=== PATIENT | female | born 1990 | race Native Hawaiian/Other Pacific Islander ===

== ENCOUNTER 2017-01-15 16:35 | Emergency (ER) | payer OTHER ==
--- NOTE | 2017-01-15 18:35 | PROVIDER DOCUMENTATION ---
HPI-Female /OB/Breast - General Source: reports: patient, other (FAMILY FRIEND) - History of Present Illness-Female /OB Does patient report she is ?: Yes Location of complaint: reports: suprapubic Radiation: reports: none Quality of Pain: reports: aching Severity in ED: reports: moderate Onset/Duration: reports: last week Timing: reports: still present Context/Activities at Onset: reports: none Vaginal Symptoms: reports: no symptoms Vaginal Bleeding Amount: None Urinary Symptoms: reports: no symptoms Related Symptoms: reports: pelvic pain, abdominal pain Leakage of Fluid: none Modifying Factors: improves with: nothing Associated Symptoms: reports: vomiting - LMP/ History Menstrual Status: currently LMP: 10/21/16 : 2 Para: 1 : 0 HCG confirmation: home preg test Care: clinic Age estimated by:: by dates CURRENT Problems: other (EXCESSIVE VOMITING) PREVIOUS Problems: reports: none <Dennys Meyer - Last Filed: 01/15/17 19:58> <Miquel Nava - Last Filed: 01/15/17 21:04> - General Chief Complaint: Female Stated Complaint: PREG/N/V Time Seen by Provider: 01/15/17 18:35 Allergies/Adverse Reactions: Patient Allergies Allergy/AdvReac Type Severity Reaction Status Date / Time No Known Allergies Allergy Verified 01/15/17 16:59 Home Medications: Home Medication List Medication Instructions Recorded Confirmed Last Taken Type Pnv with Ca,No.72/Iron/FA [Pnv 1 each PO DAILY #30 tablet 01/15/17 Unknown Rx Plus Multivit Tab] Promethazine [Phenergan] 25 mg PO Q6H PRN PRN #20 tablet 01/15/17 Unknown Rx - History of Present Illness-Female /OB Nature of Presenting Problem: PATIENT REPORTS WENT TO PCP TODAY FOR VOMTING OF . STATES DR. FOX WAS CONCERENED FOR DEHYDRATION SO RECOMMENDED PATIENT TO COME TO ER FOR IV FLUIDS. PATIENT HAS FIRST OB APPOINTMENT WITH DR. RODAS ON FRIDAY. LMP 10-25. CURRENTLY G2, P1, A0. PATIENT ALSO REPORTS LOWER ABD PAIN, BUT DENIES ANY VAGINAL BLEEDING. (Dennys Meyer) Review of Systems - Adult - REVIEW OF SYSTEMS - ADULT Constitutional: reports: no symptoms reported Eyes: reports: no symptoms reported Ears, Nose, Mouth & Throat: reports: no symptoms reported Cardiovascular: reports: no symptoms reported Respiratory: reports: no symptoms reported Gastrointestinal: reports: see HPI Genitourinary: reports: see HPI Musculoskeletal: reports: no symptoms reported Integumentary: reports: no symptoms reported Neurological: reports: headache/migraines Psychiatric: reports: no symptoms reported Endocrine: reports: no symptoms reported Hematologic/Lymphatic: reports: no symptoms reported Allergic/Immunologic: reports: no symptoms reported <Dennys Meyer - Last Filed: 01/15/17 19:58> Past History - Adult - PAST MEDICAL HISTORY-ADULT Review of Records: reports: Nursing Assessment Review, Medications Reviewed, Social history reviewed & non-contributory. <Dennys Meyer - Last Filed: 01/15/17 19:58> Physical Exam-General - PHYSICAL EXAM-ADULT Initial Vital Signs Reviewed: Yes - CONSTITUTIONAL General Appearance: appears well, alert, no apparent distress - EYES Eyes: PERRL/EOMI - HEAD, EARS, NOSE, MOUTH & THROAT HENMT: normocephalic/atraumatic - NECK Neck: full range of motion - RESPIRATORY Respiratory: lungs clear - CARDIOVASCULAR Cardiovascular: regular rate, rhythm - GASTROINTESTINAL (ABDOMEN) Abdominal Exam: normal bowel sounds, soft, tenderness (SUPRAPUBIC) - MUSCULOSKELETAL Extremity: normal range of motion, normal gait - SKIN Integumentary: normal color, normal turgor, warm/dry - NEUROLOGIC Neurologic: grossly normal - PSYCHIATRIC Psych/Mental Status: normal mood/affect, normal thought content, normal thought process, oriented x 3 <Dennys Meyer - Last Filed: 01/15/17 19:58> Progress - CHANGE OF SHIFT REPORT (ED Provider) Report Given and Care Transferred to:: J[facility] Time of Transfer: 19:58 Items Pending: Labs, Ultrasound Results <Dennys Meyer - Last Filed: 01/15/17 19:58> - ULTRASOUND (By Radiology) 1 US Study: Pelvic US Results: 10w5d IUP; FHR 163; L ovarian cyst 2cm <Miquel Nava - Last Filed: 01/15/17 21:04> - PLAN OF CARE/RESULTS Progress/Plan/Lab Results: Laboratory Tests 01/15/17 01/15/17 01/15/17 18:15 19:15 19:15 WBC RBC Hgb Hct MCV MCH MCHC RDW Std Deviation Plt Count MPV Immature Gran % (Auto) Neut % (Auto) Lymph % (Auto) [place] % (Auto) Eos % (Auto) Baso % (Auto) Immature Gran # (Auto) Neut # (Auto) Lymph # (Auto) Griggs # (Auto) Eos # (Auto) Baso # (Auto) Sodium 134 L Potassium 3.7 Chloride 98 Carbon Dioxide 21 L Anion Gap 15 BUN 5 L Creatinine 0.4 L Estimated GFR/1.73 m2 > 60 BUN/Creatinine Ratio 13 Glucose 82 Calculated Osmolality 265 Calcium 9.9 Total Bilirubin 0.20 AST 23 ALT 11 Alkaline Phosphatase 43 Total Protein 8.2 Albumin 4.6 Globulin 4.0 Albumin/Globulin Ratio 1.0 Ser , Semi-Qnt 425360.0 Urine Source CLEAN CATCH Urine Color YELLOW Urine Clarity CLEAR Urine pH 7.0 Ur Specific [place] 1.005 Urine Protein NEGATIVE Urine Ketones NEGATIVE Urine Blood TRACE Urine Nitrite NEGATIVE Urine Bilirubin NEGATIVE Urine Urobilinogen NORMAL Urine Microscopic RBC <10 Urine WBC NEGATIVE Ur Epithelial Cells <10 Urine Glucose NEGATIVE ABO/Rh Screen RhIG Candidate? 01/15/17 01/15/17 19:15 19:45 WBC 5.22 RBC 4.38 Hgb 11.9 L Hct 34.9 L MCV 79.7 L MCH 27.2 MCHC 34.1 RDW Std Deviation 12.4 Plt Count 319 MPV 9.9 Immature Gran % (Auto) 0.2 Neut % (Auto) 49.8 Lymph % (Auto) 38.5 Gr[place]gs % (Auto) 8.6 Eos % (Auto) 2.7 Baso % (Auto) 0.2 Immature Gran # (Auto) 0.01 Neut # (Auto) 2.60 Lymph # (Auto) 2.01 Griggs # (Auto) 0.45 Eos # (Auto) 0.14 Baso # (Auto) 0.01 Sodium Potassium Chloride Carbon Dioxide Anion Gap BUN Creatinine Estimated GFR/1.73 m2 BUN/Creatinine Ratio Glucose Calculated Osmolality Calcium Total Bilirubin AST ALT Alkaline Phosphatase Total Protein Albumin Globulin Albumin/Globulin Ratio Ser , Semi-Qnt Urine Source Urine Color Urine Clarity Urine pH Ur Specific [place] Urine Protein Urine Ketones Urine Blood Urine Nitrite Urine Bilirubin Urine Urobilinogen Urine Microscopic RBC Urine WBC Ur Epithelial Cells Urine Glucose ABO/Rh O NEGATIVE Screen NEGATIVE RhIG Candidate? YES Orders Category Date Time Status Heart Tones NOW Care 01/15/17 18:42 Active US OBS COMPLETE < 14 WKS [US] Stat Exams 01/15/17 18:44 Taken US TRANSVAGINAL OB [US] Stat Exams 01/15/17 Taken CBC WITH DIFF [HEME] Stat Lab 01/15/17 19:45 Completed COMPREHENSIVE METABOLIC PANEL [CHEM] Stat Lab 01/15/17 19:15 Completed BLEED SCREEN [BBK] Stat Lab 01/15/17 19:15 Completed QUANT TEST Stat Lab 01/15/17 19:15 Completed RHOGAM WORKUP [BBK] Stat Lab 01/15/17 19:[address] W/POSS RFLX CULT [URINALYSIS] Stat Lab 01/15/17 18:15 Completed 0.9% Sodium Chloride Inj [Ns] 1,000 ml Med 01/15/17 18:45 Discontinued IV 999 mls/hr Vital Signs Temp 01/15/17 16:55 98 F No Known Allergies Allergy (Verified 01/15/17 16:59) No Home Medications 01/15/17 Laboratory 01/15/17 01/15/17 01/15/17 19:45 19:15 19:15 WBC 5.22 RBC 4.38 Hgb 11.9 L Hct 34.9 L MCV 79.7 L MCH 27.2 MCHC 34.1 RDW Std Deviation 12.4 Plt Count 319 MPV 9.9 Immature Gran % (Auto) 0.2 Neut % (Auto) 49.8 Lymph % (Auto) 38.5 Griggs % (Auto) 8.6 Eos % (Auto) 2.7 Baso % (Auto) 0.2 Immature Gran # (Auto) 0.01 Neut # (Auto) 2.60 Lymph # (Auto) 2.01 [place]iggs # (Auto) 0.45 Eos # (Auto) 0.14 Baso # (Auto) 0.01 Sodium Potassium Chloride Carbon Dioxide Anion Gap BUN Creatinine Estimated GFR/1.73 m2 BUN/Creatinine Ratio Glucose Calculated Osmolality Calcium Total Bilirubin AST ALT Alkaline Phosphatase Total Protein Albumin Globulin Albumin/Globulin Ratio Ser , Semi-Qnt 749494.0 Urine Source Urine Color Urine Clarity Urine pH Ur Specific [place] Urine Protein Urine Ketones Urine Blood Urine Nitrite Urine Bilirubin Urine Urobilinogen Urine Microscopic RBC Urine WBC Ur Epithelial Cells Urine Glucose ABO/Rh O NEGATIVE Screen NEGATIVE RhIG Candidate? YES 01/15/17 01/15/17 19:15 18:15 WBC RBC Hgb Hct MCV MCH MCHC RDW Std Deviation Plt Count MPV Immature Gran % (Auto) Neut % (Auto) Lymph % (Auto) [place] % (Auto) Eos % (Auto) Baso % (Auto) Immature Gran # (Auto) Neut # (Auto) Lymph # (Auto) [place] # (Auto) Eos # (Auto) Baso # (Auto) Sodium 134 L Potassium 3.7 Chloride 98 Carbon Dioxide 21 L Anion Gap 15 BUN 5 L Creatinine 0.4 L Estimated GFR/1.73 m2 > 60 BUN/Creatinine Ratio 13 Glucose 82 Calculated Osmolality 265 Calcium 9.9 Total Bilirubin 0.20 AST 23 ALT 11 Alkaline Phosphatase 43 Total Protein 8.2 Albumin 4.6 Globulin 4.0 Albumin/Globulin Ratio 1.0 Ser , Semi-Qnt Urine Source CLEAN CATCH Urine Color YELLOW Urine Clarity CLEAR Urine pH 7.0 Ur Specific [place] 1.005 Urine Protein NEGATIVE Urine Ketones NEGATIVE Urine Blood TRACE Urine Nitrite NEGATIVE Urine Bilirubin NEGATIVE Urine Urobilinogen NORMAL Urine Microscopic RBC <10 Urine WBC NEGATIVE Ur Epithelial Cells <10 Urine Glucose NEGATIVE ABO/Rh Screen RhIG Candidate? Pt is resting well. Discussed results c caregiver in room. Will d/c home. They are in agreement. (Miquel Nava) Departure <Dennys Meyer - Last Filed: 01/15/17 19:58> - Departure Time of Disposition Order: 21:02 Certified Medical Emergency: Emergent <Miquel Nava - Last Filed: 01/15/17 21:04> - Departure DIAGNOSIS: Nausea and vomiting in prior to 22 weeks gestation Disposition: HOME 01 Condition: Good Additional Instructions: Take medication as prescribed. Stay well hydrated. Follow up with your [facility]PER[facility] as scheduled. ED Follow Up Instructions: You have been treated by a care provider in the Emergency Department. These instructions are being provided to you so you can have an understanding of how to care for yourself upon discharge. Upon discharge from the Emergency Department, you are responsible for making arrangements for follow-up care by a physician of your choice. Take all prescribed medications as directed. Return to the Emergency Department immediately for any new or worsening symptoms. You may call the Physician Referral phone number at [phone] to obtain a list of Physicians who are taking new patients. Prescriptions: Promethazine [Phenergan] 25 mg PO Q6H PRN PRN #20 tablet PRN Reason: Nausea Pnv with Ca,No.72/Iron/FA [Pnv Plus Multivit Tab] 1 each PO DAILY #30 tablet Referrals: Debbie Fox MD [Primary Care Provider] - Omar Rodas MD [STAFF PHYSICIAN] - Attestation - Physician/ LESLEY Attestation Patient care was provided by Advanced Practice Provider:: Yes Advanced Practice Provider:: Miquel Nava Advanced Practice Provider documentation review:: The Mid-level provider documentation, treatment plan and medical decision making was reviewed by the physician who agrees with all treatment and medical decision making by the P. <Miquel Nava - Last Filed: 01/15/17 21:04> Physician Attestation
[2017-01-15] MEDS ORDERED: NS 1,000 ML IV ONE (18:45)
[2017-01-15 19:25] LABS: MANUAL DIFF NEEDED? NO
[2017-01-15 19:28] LABS: URINE CULTURE PL NEEDED? NO; URINE SOURCE CLEAN CATCH
[2017-01-15 19:52] LABS: AGAP 15; ALBUMIN 4.6 g/dL (3.5-5.0); ALKALINE PHOSPHATASE 43 U/L (32-104); BUN 5 mg/dL (8-22); CALCIUM 9.9 mg/dL (8.8-10.2); CHLORIDE 98 mmol/L (98-107); COSMO 265; GOT 23 U/L (10-30); GPT 11 U/L (10-36); POTASSIUM 3.7 mmol/L (3.5-5.1); SODIUM 134 mmol/L (136-145); TCO2 21 mmol/L (25-35); TOTAL PROTEIN 8.2 g/dL (6.3-8.3)
[2017-01-15 19:53] LABS: BASO% 0.2 % (0.0-0.8); EOS# 0.14 X1000 (0.0-0.7); EOS% 2.7 % (0.0-10.0); HEMATOCRIT 34.9 % (37.0-47.0); HEMOGLOBIN 11.9 g/dL (12.0-16.0); IMM GRAN# 0.01 X1000 (0.0-0.04); IMM GRAN% 0.2 % (0.0-0.5); LYMPH# 2.01 X1000 (1.2-3.4); LYMPH% 38.5 % (20.5-51.1); MCH 27.2 PG (27-31); MCHC 34.1 g/dL (33-37); MCV 79.7 FL (81-99); MONO# 0.45 X1000 (0.11-0.59); MONO% 8.6 % (1.7-9.3); MPV 9.9 FL (7.4-10.4); NEUT% 49.8 % (42.2-75.2); PLT 319 X1000 (130-400); RBC 4.38 XMIL (4.2-5.4)
[2017-01-15 20:26] LABS: BILIRUBIN URINE NEGATIVE (NEGATIVE); BLOOD URINE TRACE (NEGATIVE); CLARITY CLEAR (CLEAR); COLOR YELLOW; GLUCOSE URINE NEGATIVE (NEGATIVE); LEUKOCYTES URINE NEGATIVE (NEGATIVE); NITRITE URINE NEGATIVE (NEGATIVE); PROTEIN URINE NEGATIVE (NEGATIVE); SP GRAVITY URINE 1.005; UROBILINOGEN URINE NORMAL
[2017-01-15 20:31] LABS: URINE EPITHELIAL CELLS <10 /HPF (<10); URINE RBC <10 /HPF (<10)
[2017-01-15 21:13] VITALS: BP 108/75
--- NOTE | 2017-01-16 09:19 | Diag Imaging Result Document ---
PROCEDURE NAME: US OBS COMPLETE < 14 WKS - 01/15/2017 OBSTETRIC ULTRASOUND: COMPARISON: None available. FINDINGS: There is a single viable intrauterine gestation. No gross anomalies are appreciated. There is no evidence of subchorionic hemorrhage. The measured heart rate is 163 beats per minute. The gestational age by ultrasound is 10 weeks and 5 days. There is a 2-cm simple-appearing left ovarian cyst. The left ovary is grossly unremarkable, otherwise. The right ovary was not visualized. No pelvic free fluid is identified. IMPRESSION: Single viable intrauterine gestation with no gross anomalies appreciated.
== END 2017-01-15 21:16 | disposition home or self-care (01) ==
LOC: P.ED 16:35
DX: O21.9 Vomiting of pregnancy, unspecified (principal); O26.891 Other specified pregnancy related conditions, first trimester; R11.0 Nausea; R10.2 Pelvic and perineal pain; R10.30 Lower abdominal pain, unspecified; R10.819 Abdominal tenderness, unspecified site; Z3A.00 Weeks of gestation of pregnancy not specified
CPT/HCPCS: 76801; 76817; 80053; 81001; 84702; 85025; 85461; 86900; 86901; J7030

== ENCOUNTER 2017-08-04 05:45 | Inpatient (IN) ==
[2017-08-04] MEDS ORDERED: PEPCID IV PRN (06:39)
[2017-08-04] MEDS ORDERED: REGLAN PO ONE (06:39)
[2017-08-04] MEDS ORDERED: STADOL IV PRN (06:39)
[2017-08-04] MEDS ORDERED: ZOFRAN IV PRN (06:39)
[2017-08-04] MEDS ORDERED: PEPCID PO ONE (06:39)
[2017-08-04] MEDS ORDERED: PEPCID PO PRN (06:39)
[2017-08-04] MEDS ORDERED: TYLENOL PO PRN (06:39)
[2017-08-04] MEDS ORDERED: KEFZOL 1 GM/D5W 1 GM/50 ML IVPB IV PRN (06:39)
[2017-08-04] MEDS ORDERED: LR 1,000 ML IV SCH (06:39)
[2017-08-04] MEDS ORDERED: PITOCIN 30 UNITS/LR 30 UNITS/500 ML IV.SOLN IV SCH (06:39)
[2017-08-04] MEDS ORDERED: SODIUM CHLORIDE 0.9% INJ SCH (06:45)
[2017-08-04 07:57] LABS: MANUAL DIFF NEEDED? NO; URINE SOURCE VOIDED
[2017-08-04 07:59] LABS: BASO% 0.3 % (0.0-0.8); EOS# 0.24 X1000 (0.0-0.7); EOS% 3.9 % (0.0-10.0); HEMATOCRIT 35.6 % (37.0-47.0); HEMOGLOBIN 11.5 g/dL (12.0-16.0); IMM GRAN# 0.03 X1000 (0.0-0.04); IMM GRAN% 0.5 % (0.0-0.5); LYMPH% 27.3 % (20.5-51.1); MCH 26.2 PG (27-31); MCHC 32.3 g/dL (33-37); MCV 81.1 FL (81-99); MONO# 0.49 X1000 (0.11-0.59); MONO% 7.9 % (1.7-9.3); NEUT% 60.1 % (42.2-75.2); PLT 275 X1000 (130-400); RBC 4.39 XMIL (4.2-5.4)
[2017-08-04 08:03] LABS: UR AMPHETAMINES QUAL NONE DETECTED (NONE DETECT); UR BARBITUATES QUAL NONE DETECTED (NONE DETECT); UR BENZODIAZEPIN QUAL NONE DETECTED (NONE DETECT); UR CANNABINOIDS QUAL NONE DETECTED (NONE DETECT); UR COCAINE QUAL NONE DETECTED (NONE DETECT); UR MDMA QUAL NONE DETECTED (NONE DETECT); UR METHADONE QUAL NONE DETECTED (NONE DETECT); UR METHAMPHETAMINE QUAL NONE DETECTED (NONE DETECT); UR OPIATES QUAL NONE DETECTED (NONE DETECT); UR OXYCODONE QUAL NONE DETECTED (NONE DETECT); UR PCP QUAL NONE DETECTED (NONE DETECT); UR TCA QUAL NONE DETECTED (NONE DETECT)
[2017-08-04 08:06] LABS: BILIRUBIN URINE NEGATIVE (NEGATIVE); BLOOD URINE NEGATIVE (NEGATIVE); CLARITY CLEAR (CLEAR); COLOR YELLOW; GLUCOSE URINE NEGATIVE (NEGATIVE); LEUKOCYTES URINE NEGATIVE (NEGATIVE); NITRITE URINE NEGATIVE (NEGATIVE); PROTEIN URINE NEGATIVE (NEGATIVE); SP GRAVITY URINE 1.005; UROBILINOGEN URINE NORMAL
[2017-08-04] MEDS ORDERED: XYLOCAINE-MPF 1% INJ ONE (10:41)
[2017-08-04] MEDS ORDERED: MINERAL OIL TOP PRN (10:42)
[2017-08-04] MEDS ORDERED: NORCO-5 PO PRN (12:48)
[2017-08-04] MEDS ORDERED: PITOCIN IM PRN (12:48)
[2017-08-04] MEDS ORDERED: M-M-R II VACCINE SUBQ ONE (12:48)
[2017-08-04] MEDS ORDERED: XYLOCAINE-MPF 1% INJ PRN (12:48)
[2017-08-04] MEDS ORDERED: PITOCIN 30 UNITS/LR 30 UNITS/500 ML IV.SOLN IV ONE (12:48)
[2017-08-04] MEDS ORDERED: HYDROXYZINE IM PRN (12:48)
[2017-08-04] MEDS ORDERED: PITOCIN 20 UNITS/LR 20 UNITS/1,000 ML IV.SOLN IV SCH (12:48)
[2017-08-04] MEDS ORDERED: CYTOTEC PO PRN (12:48)
[2017-08-04] MEDS ORDERED: BENADRYL IV PRN (12:48)
[2017-08-04] MEDS ORDERED: MINERAL OIL PO PRN (12:48)
[2017-08-04] MEDS ORDERED: BOOSTRIX VACCINE IM ONE (12:48)
[2017-08-04] MEDS ORDERED: PERI MEDS (DERMOPLAST/NUPERCAINAL/TUCKS) MISC PRN (12:48)
[2017-08-04] MEDS ORDERED: HYDROXYZINE PO PRN (12:48)
[2017-08-04] MEDS ORDERED: AMBIEN PO PRN (12:48)
[2017-08-04] MEDS ORDERED: BENADRYL PO PRN (12:48)
--- NOTE | 2017-08-04 17:47 | OPERATIVE NOTE ---
PROCEDURE DATE: 08/04/2017 DESCRIPTION OF DELIVERY: The patient underwent sterile controlled spontaneous vaginal delivery of a viable male weighing 6 pounds 10 ounces. Apgars currently unavailable. No nuchal no dystocia. Cord doubly clamped and cut. Infant handed off to the waiting pediatric staff. Placenta delivered spontaneously and intact. Uterus firm with Pitocin, massage. Uterus, cervix and vagina explored, right posterior vaginal first-degree laceration repaired with 3-0 chromic in the usual fashion hemostatic. ESTIMATED BLOOD LOSS: 250 mL. COMPLICATIONS: None. cc: Rochelle Salazar MD [email or web address]
[2017-08-04] MEDS: MOTRIN PO PRN (18:27)
[2017-08-04] MEDS: NORCO-10 PO PRN (18:28)
[2017-08-04] MEDS: PERICOLACE PO SCH (20:22)
[2017-08-05] MEDS: NORCO-10 PO PRN ×3 (03:47→22:54)
[2017-08-05] MEDS: MOTRIN PO PRN ×3 (03:48→22:54)
[2017-08-05 06:31] LABS: HEMOGLOBIN 10.5 g/dL (12.0-16.0); MCH 25.2 PG (27-31); MCHC 30.9 g/dL (33-37); MCV 81.7 FL (81-99); MPV 11.3 FL (7.4-10.4); RBC 4.16 XMIL (4.2-5.4)
[2017-08-05] MEDS: PERICOLACE PO SCH (20:40)
[2017-08-06 08:13] VITALS: BP 85/44
== END 2017-08-06 10:55 | disposition home or self-care (01) ==
LOC: P.LD 05:45 → P.WC 16:23
PROVIDERS: ADMIT Obstetrics & Gynecology; ATTEND Obstetrics & Gynecology